=== PATIENT | female | born 1970 | race Caucasian/White ===

== ENCOUNTER 2016-10-25 16:46 | Emergency (ER) | payer OTHER ==
[2016-10-25] MEDS ORDERED: KETOROLAC 60 MG/2 ML VIAL IVP STA (17:01)
[2016-10-25] MEDS ORDERED: ONDANSETRON 4 MG/2 ML VIAL IVP STA (17:01)
[2016-10-25 17:03] VITALS: RESP 18; TEMP 98.9
--- NOTE | 2016-10-25 17:05 | ED ---
General Adult HPI - General Stated complaint: Fall Time Seen by Provider: 10/25/16 16:50 Source: RN notes reviewed - History of Present Illness Initial comments: Is a 46-year-old female presents emergency pertinent stating that she stepped up on a shelf in her pantry and then fell off of it backwards knocking herself unconscious. Patient states she estimates she was out for about 3 minutes. Patient complains of neck pain and a headache on the right side of her head. Patient states she also complains of some lower back pain. Patient states she is finding it difficult to move her right foot. Patient denies any chest pain or upper back pain. Patient denies any abdominal pain. Patient denies any arm pain and any pain on the left leg. - Related Data Home Medications Medication Instructions Recorded Confirmed Albuterol Inhaler [Ventolin Hfa 1 - 2 puff INHALATION RT-Q6H PRN 10/25/16 Inhaler] Albuterol Nebulized [Ventolin 2.5 mg INHALATION RT-Q4H PRN 10/25/16 10/25/16 Nebulized] HYDROcodone/APAP 10-325MG [[place] 1 tab PO Q6H PRN 10/25/16 10/25/16 10-325] Omeprazole 20 mg PO DAILY PRN 10/25/16 10/25/16 Ondansetron [Zofran] 4 mg PO Q12HR PRN 10/25/16 10/25/16 Allergies Allergy/AdvReac Type Severity Reaction Status Date / Time NSAIDS (Non-Steroidal Allergy Rash/Hives Verified 10/25/16 17:30 Anti-Inflamma Review of Systems ROS Statement: Those systems with pertinent positive or pertinent negative responses have been documented in the HPI. ROS Other: All systems not noted in ROS Statement are negative. General Exam - General Exam Comments Initial Comments: GENERAL: Patient is well-developed and well-nourished. Patient is nontoxic and well- hydrated and is in mild distress. ENT: Neck is soft and supple. No significant lymphadenopathy is noted. Oropharynx is clear. Moist mucous membranes. Patient has tenderness of the trapezius muscle bilaterally. There is no scalp tenderness anywhere palpated. EYES: The sclera were anicteric and conjunctiva were pink and moist. Extraocular movements were intact and pupils were equal round and reactive to light. Eyelids were unremarkable. PULMONARY: Unlabored respirations. Good breath sounds bilaterally. No audible rales rhonchi or wheezing was noted. CARDIOVASCULAR: There is a regular rate and rhythm without any murmurs gallops or rubs. ABDOMEN: Soft and nontender with normal bowel sounds. No palpable organomegaly was noted. There is no palpable pulsatile mass. SKIN: Skin is clear with no lesions or rashes and otherwise unremarkable. NEUROLOGIC: Patient is alert and oriented x3. Cranial nerves II through XII are grossly intact. Patient has full range of motion except for her right foot she states she cannot plantar or dorsi flex and can't curl her toes. But widely she know about the Normal speech, volume and content. Symmetrical smile. MUSCULOSKELETAL: Patient is no swelling or tenderness of the ankle and the on either leg. He right hip is somewhat tender in the lateral aspect but very minimally patient is able to have full range of motion of that leg. LYMPHATICS: No significant lymphadenopathy is noted PSYCHIATRIC: Normal psychiatric evaluation. Course Vital Signs 10/25/16 10/25/16 16:52 18:14 Temperature 98.9 F Pulse Rate 91 55 L Respiratory 18 18 Rate Blood Pressure 137/77 114/68 O2 Sat by Pulse 96 97 Oximetry Medical Decision Making - Medical Decision Making EKG shows a normal sinus rhythm at 83 bpm [place] interval 120 QRS is 82 QT interval 374 QTC is 439 per patient's EKG shows no ST segment elevation or depression. CT of the head and neck show no acute abnormality. X-ray of the lumbar spine to [place]. X-ray of the pelvis showed no acute normalities. I will back in there with the patient was moving the foot when I asked her to move the foot she still said she couldn't do it. Disposition Clinical Impression: Fall, Head injury, Contusion, hip Disposition: HOME SELF-CARE Condition: Good Instructions: Head Injury (ED) Referrals: None,Stated [Primary Care Provider] - 1-2 days Time of Disposition: 19:33
[2016-10-25] MEDS ORDERED: ONDANSETRON 4 MG/2 ML VIAL IM STA (17:24)
[2016-10-25] MEDS ORDERED: ACETAMINOPHEN TAB 325 MG TAB PO STA (17:26)
[2016-10-25 18:15] VITALS: BP 114/68; PULSE 55
--- NOTE | 2016-10-25 18:39 | CT ---
EXAMINATION TYPE: CT brain sheron cayr con DATE OF EXAM: 10/25/2016 6:32 PM COMPARISON: NONE HISTORY: Patient complains of headache and neck pain post fall today. CT DLP: 1154.5 mGycm Automated exposure control for dose reduction was used. TECHNIQUE: CT scan of the head and cervical spine are performed without contrast. FINDINGS: The ventricles and sulci appear normal. There is no mass effect nor midline shift. There is no sign of intracranial hemorrhage. The calvarium is intact. There is moderate mucosal thickening in the ethmoid sinus. The cervical vertebra show mild straightening. There is disc space narrowing at C6-7 with mild spurri ng of the endplates. Posterior elements are intact. Facet joints are intact. Skull base is intact. Th ere is no evidence of a fracture. IMPRESSION: Moderate spondylosis at C6-7. No fracture seen. Negative CT scan of the brain. Ethmoid sinusitis is noted.
--- NOTE | 2016-10-25 19:23 | XR ---
EXAMINATION TYPE: XR pelvis AP view DATE OF EXAM: 10/25/2016 7:18 PM COMPARISON: NONE HISTORY: Back pain after fall TECHNIQUE: Single view FINDINGS: Pelvic ring is intact. Proximal femurs and hip joints are intact. Sacroiliac joints appear normal. There is no sign of a fracture. IMPRESSION: Normal pelvis
--- NOTE | 2016-10-25 19:23 | XR ---
EXAMINATION TYPE: XR chest 2V DATE OF EXAM: 10/25/2016 7:18 PM COMPARISON: NONE HISTORY: Difficulty breathing TECHNIQUE: Frontal and lateral views of the chest are obtained. FINDINGS: Heart and mediastinum are normal. Lungs are clear. Diaphragm is normal. There is no sign o f a pneumothorax. Bony thorax and soft tissues appear normal. IMPRESSION: Normal chest
--- NOTE | 2016-10-25 19:24 | XR ---
EXAMINATION TYPE: XR lumbosacral spine min 4V DATE OF EXAM: 10/25/2016 7:18 PM COMPARISON: NONE HISTORY: Back pain after a fall TECHNIQUE: 5 views FINDINGS: The lumbar vertebra have normal spacing and alignment. Posterior elements are intact. There is no sign of a compression fracture. Sacroiliac joints appear normal. There are clips from cholecys tectomy. IMPRESSION: Normal lumbar spine
== END 2016-10-25 19:52 | disposition home or self-care (01) ==
LOC: EC 16:46
DX: S70.01XA Contusion of right hip, initial encounter (principal); S09.90XA Unspecified injury of head, initial encounter; M54.2 Cervicalgia; M54.5 Low back pain; Z88.6 Allergy status to analgesic agent; W17.89XA Other fall from one level to another, initial encounter
CPT/HCPCS: 93005; 71020; 72110; 72170; 72125; 70450; 99285; 96372; J2405

== ENCOUNTER 2016-11-09 03:22 | Emergency (ER) | payer OTHER ==
--- NOTE | 2016-11-09 03:33 | ED ---
SOB HPI - General Stated Complaint: SOB Time Seen by Provider: 11/09/16 03:25 Source: patient, EMS - History of Present Illness Initial Comments: This patient is 46-year-old woman with history of COPD who presents for shortness of breath. The patient states it is been getting worse over about the past 24 hours. She has been having the symptoms typical of exacerbations of her COPD, including increasing dyspnea, wheezing, cough which is nonproductive. Patient is denying fever or chills. He states that the shortness of breath became worse tonight and she called the ambulance. MD Complaint: shortness of breath, cough Onset/Timin -: days(s) Improves With: oxygen Known History Of: COPD Associated Symptoms: cough Treatments Prior to Arrival: oxygen, bronchodilator, NIPPV - Related Data Home Medications Medication Instructions Recorded Confirmed Albuterol Inhaler [Ventolin Hfa 1 - 2 puff INHALATION RT-Q6H PRN 10/25/16 Inhaler] Albuterol Nebulized [Ventolin 2.5 mg INHALATION RT-Q4H PRN 10/25/16 11/09/16 Nebulized] HYDROcodone/APAP 10-325MG [[place] 1 tab PO Q6H PRN 10/25/16 11/09/16 10-325] Omeprazole 20 mg PO DAILY PRN 10/25/16 11/09/16 Ondansetron [Zofran] 4 mg PO Q12HR PRN 10/25/16 11/09/16 Allergies Allergy/AdvReac Type Severity Reaction Status Date / Time NSAIDS (Non-Steroidal Allergy Rash/Hives Verified 11/09/16 03:30 Anti-Inflamma Review of Systems ROS Statement: Those systems with pertinent positive or pertinent negative responses have been documented in the HPI. ROS Other: All systems not noted in ROS Statement are negative. Constitutional: Denies: fever Respiratory: Reports: cough, dyspnea, wheezes. Denies: hemoptysis Cardiovascular: Reports: chest pain. Denies: palpitations, edema, syncope Gastrointestinal: Denies: vomiting, diarrhea Genitourinary: Denies: dysuria, hematuria Musculoskeletal: Denies: back pain Neurological: Denies: headache, weakness, numbness Past Medical History Past Medical History: Asthma, COPD Additional Past Medical History / Comment(s): ULCERATIVE COLITIS SUPERIOR MESENTARIC ARTERY SYNDROME History of Any Multi-Drug Resistant Organisms: None Reported, MRSA Date of last positivie culture/infection: 2008 MDRO Source:: SPUTUM Past Surgical History: Cholecystectomy Past Psychological History: No Psychological Hx Reported Smoking Status: Never smoker Past Alcohol Use History: None Reported Past Drug Use History: Marijuana General Exam General appearance: alert Head exam: Present: atraumatic, normocephalic Eye exam: Present: normal appearance. Absent: scleral icterus, conjunctival injection ENT exam: Present: normal oropharynx Neck exam: Present: normal inspection Respiratory exam: Present: wheezes, prolonged expiratory. Absent: rales, rhonchi, stridor, accessory muscle use, decreased breath sounds Cardiovascular Exam: Present: regular rate, normal rhythm, normal heart sounds. Absent: systolic murmur, diastolic murmur, rubs, gallop GI/Abdominal exam: Present: soft. Absent: tenderness, guarding, rebound, mass Extremities exam: Present: normal inspection, normal capillary refill. Absent: pedal edema, calf tenderness Back exam: Present: normal inspection. Absent: CVA tenderness (R), CVA tenderness (L) Neurological exam: Present: alert Skin exam: Present: warm, dry, intact, normal color. Absent: rash, cyanosis, diaphoretic, erythema, petechiae, pallor, mottled Course Vital Signs 11/09/16 11/09/16 11/09/16 03:25 04:15 04:59 Temperature 98.3 F Pulse Rate 105 H 95 66 Respiratory 32 H 18 18 Rate Blood Pressure 155/77 127/68 O2 Sat by Pulse 95 100 98 Oximetry 11/09/16 11/09/16 11/09/16 05:09 05:20 05:36 Temperature Pulse Rate 95 95 91 Respiratory 18 Rate Blood Pressure 114/61 O2 Sat by Pulse 96 Oximetry - Reevaluation(s) Reevaluation #1: 11/09/16 06:50 Patient's respiratory status has improved and able to be weaned from BiPAP. Medical Decision Making - Medical Decision Making I was informed by the admission coordinator that this patient's insurance, [employer], was not authorizing admission here and will request that patient be admitted at [facility]. This was discussed with the patient. - Lab Data Result diagrams: 11/09/16 03:38 11/09/16 03:38 Lab Results 0311/09/16 11/09/16 Range/Units 03:38 03:38 03:38 WBC 9.5 (3.8-10.6) k/uL RBC 4.41 (3.80-5.40) m/uL Hgb 13.4 (11.4-16.0) gm/dL Hct 40.4 (34.0-46.0) % MCV 91.7 (80.0-100.0) fL MCH 30.3 (25.0-35.0) pg MCHC 33.1 (31.0-37.0) g/dL RDW 13.4 (11.5-15.5) % Plt Count 322 (150-450) k/uL Neutrophils % 68 % Lymphocytes % 20 % Monocytes % 4 % Eosinophils % 5 % Basophils % 1 % Neutrophils # 6.5 (1.3-7.7) k/uL Lymphocytes # 1.9 (1.0-4.8) k/uL Monocytes # 0.4 (0-1.0) k/uL Eosinophils # 0.4 (0-0.7) k/uL Basophils # 0.1 (0-0.2) k/uL PT 9.8 (9.0-12.0) sec INR 1.0 (<1.1) APTT 20.9 L (22.0-30.0) sec D-Dimer 0.62 H (<0.60) mg/L FEU Sodium 142 (137-145) mmol/L Potassium 4.9 (3.5-5.1) mmol/L Chloride 106 (98-107) mmol/L Carbon Dioxide 27 (22-30) mmol/L Anion Gap 9 mmol/L BUN 15 (7-17) mg/dL Creatinine 0.80 (0.52-1.04) mg/dL Est GFR (MDRD) Af Amer >60 (>60 ml/min/1.73 sqM) Est GFR (MDRD) Non-Af >60 (>60 ml/min/1.73 sqM) Glucose 130 H (74-99) mg/dL Calcium 8.9 (8.4-10.2) mg/dL Magnesium 1.9 (1.6-2.3) mg/dL Total Bilirubin 0.3 (0.2-1.3) mg/dL AST 42 H (14-36) U/L ALT 66 H (9-52) U/L Alkaline Phosphatase 88 (38-126) U/L Troponin I (0.000-0.034) ng/mL NT-Pro-B Natriuret Pep pg/mL Total Protein 6.7 (6.3-8.2) g/dL Albumin 4.2 (3.5-5.0) g/dL 11/09/16 11/09/16 Range/Units 03:38 03:38 WBC (3.8-10.6) k/uL RBC (3.80-5.40) m/uL Hgb (11.4-16.0) gm/dL Hct (34.0-46.0) % MCV (80.0-100.0) fL MCH (25.0-35.0) pg MCHC (31.0-37.0) g/dL RDW (11.5-15.5) % Plt Count (150-450) k/uL Neutrophils % % Lymphocytes % % Monocytes % % Eosinophils % % Basophils % % Neutrophils # (1.3-7.7) k/uL Lymphocytes # (1.0-4.8) k/uL Monocytes # (0-1.0) k/uL Eosinophils # (0-0.7) k/uL Basophils # (0-0.2) k/uL PT (9.0-12.0) sec INR (<1.1) APTT (22.0-30.0) sec D-Dimer (<0.60) mg/L FEU Sodium (137-145) mmol/L Potassium (3.5-5.1) mmol/L Chloride (98-107) mmol/L Carbon Dioxide (22-30) mmol/L Anion Gap mmol/L BUN (7-17) mg/dL Creatinine (0.52-1.04) mg/dL Est GFR (MDRD) Af Amer (>60 ml/min/1.73 sqM) Est GFR (MDRD) Non-Af (>60 ml/min/1.73 sqM) Glucose (74-99) mg/dL Calcium (8.4-10.2) mg/dL Magnesium (1.6-2.3) mg/dL Total Bilirubin (0.2-1.3) mg/dL AST (14-36) U/L ALT (9-52) U/L Alkaline Phosphatase (38-126) U/L Troponin I <0.012 (0.000-0.034) ng/mL NT-Pro-B Natriuret Pep 386 pg/mL Total Protein (6.3-8.2) g/dL Albumin (3.5-5.0) g/dL - EKG Data -: EKG Interpreted by Me EKG shows normal: sinus rhythm, axis (Normal), intervals (Normal), ST-T waves ( Normal) Rate: tachycardia (Rate 103 bpm) Disposition Clinical Impression: Acute exacerbation of chronic obstructive airways disease Disposition: ADMITTED IP TO THIS HOSP Condition: Fair Referrals: None,Stated [Primary Care Provider] - 1-2 days
[2016-11-09 03:49] LABS: Basophils # (A) 0.1 k/uL (0-0.2); Basophils % (A) 1 %; CH 29.7; CHCM 32.6; Eosinophils # (A) 0.4 k/uL (0-0.7); Eosinophils % (A) 5 %; HCT 40.4 % (34.0-46.0); HGB 13.4 gm/dL (11.4-16.0); Luc # (Auto) 0.24; Luc % (Auto) 3; Lymphocytes # (A) 1.9 k/uL (1.0-4.8); Lymphocytes % (A) 20 %; MCH 30.3 pg (25.0-35.0); MCHC 33.1 g/dL (31.0-37.0); MCV 91.7 fL (80.0-100.0); Mean Platelet Volume 7.8; Monocytes # (A) 0.4 k/uL (0-1.0); Monocytes % (A) 4 %; Neutrophils # (A) 6.5 k/uL (1.3-7.7); Neutrophils % (A) 68 %; RBC 4.41 m/uL (3.80-5.40); RDW 13.4 % (11.5-15.5); WBC 9.5 k/uL (3.8-10.6); WBC (Perox) 9.88
[2016-11-09 04:01] LABS: ALT 66 U/L (9-52); AST 42 U/L (14-36); Alkaline Phosphatase 88 U/L (38-126); Anion Gap 9 mmol/L; Blood Urea Nitrogen 15 mg/dL (7-17); Calcium 8.9 mg/dL (8.4-10.2); Carbon Dioxide 27 mmol/L (22-30); Chloride 106 mmol/L (98-107); Glucose 130 mg/dL (74-99); Magnesium 1.9 mg/dL (1.6-2.3); Non-African American GFR(MDRD) >60 (>60 ml/min/1.73 sqM); Potassium 4.9 mmol/L (3.5-5.1); Sodium 142 mmol/L (137-145); Total Bilirubin 0.3 mg/dL (0.2-1.3); Total Protein 6.7 g/dL (6.3-8.2)
[2016-11-09 04:10] LABS: Partial Thromboplastin Time 20.9 sec (22.0-30.0); Prothrombin Time 9.8 sec (9.0-12.0)
[2016-11-09 04:15] VITALS: RESP 18
--- NOTE | 2016-11-09 04:15 | XR ---
EXAM: XR Chest, 1 View. CLINICAL HISTORY: Reason: dyspnea TECHNIQUE: Frontal view of the chest. COMPARISON: 10/25/16 FINDINGS: Lungs: Unremarkable. No consolidation. Pleural space: Unremarkable. No pneumothorax. Heart: Unremarkable. No cardiomegaly. Mediastinum: Unremarkable. Bones/joints: Unremarkable. Tubes, lines and devices: Overlying chest leads obscure portion of the chest. Other findings: No significant change. IMPRESSION: No acute findings.
[2016-11-09] MEDS ORDERED: predniSONE 20 MG TAB PO STA (04:55)
[2016-11-09] MEDS ORDERED: ALBUTEROL NEBULIZED 2.5 MG/3 ML INHALATION STA (04:58)
[2016-11-09] MEDS ORDERED: HYDROcodone/APAP 7.5-325MG 1 EACH TAB PO ONE (04:58)
[2016-11-09] MEDS ORDERED: SODIUM CHLORIDE 0.9% 1,000 ML IV SCH (05:15)
[2016-11-09] MEDS ORDERED: PANTOPRAZOLE 40 MG TABLET PO PRN (05:16)
[2016-11-09] MEDS ORDERED: ONDANSETRON 4 MG TAB PO PRN (05:16)
[2016-11-09] MEDS ORDERED: HYDROcodone/APAP 7.5-325MG 1 EACH TAB PO SCH (05:30)
[2016-11-09] MEDS ORDERED: IPRATROPIUM-ALBUTEROL 3 ML NEB INHALATION SCH (08:00)
[2016-11-09 08:23] VITALS: BP 117/72; PULSE 94; TEMP 98.5
[2016-11-09] MEDS ORDERED: NICOTINE 21MG/24HR PATCH TD SCH (09:00)
[2016-11-09] MEDS ORDERED: predniSONE 20 MG TAB PO SCH (09:00)
== END 2016-11-09 08:21 | disposition other institution (70) ==
LOC: EC 03:22
DX: J44.1 Chronic obstructive pulmonary disease with (acute) exacerbation (principal); Z88.8 Allergy status to other drugs, medicaments and biological substances; Z86.14 Personal history of Methicillin resistant Staphylococcus aureus infection
CPT/HCPCS: 99285 ×2; 36415; 94660; 94640; 93005; 85379; 83880; 80053; 83735; 84484; 85025; 85610; 85730; 71010; J7512

== ENCOUNTER 2016-11-30 01:41 | Emergency (ER) | payer OTHER ==
[2016-11-30] MEDS ORDERED: SODIUM CHLORIDE 0.9% 1,000 ML IV STA ×2 (02:11→05:02)
[2016-11-30] MEDS ORDERED: ONDANSETRON 4 MG/2 ML VIAL IVP STA (02:29)
[2016-11-30 02:36] LABS: Basophils % (A) 0 %; CHCM 29.3; Eosinophils # (A) 0.1 k/uL (0-0.7); Eosinophils % (A) 1 %; HCT 47.8 % (34.0-46.0); HDW 2.25; HGB 13.2 gm/dL (11.4-16.0); Hypochromasia Marked; Luc # (Auto) 0.18; Luc % (Auto) 1; Lymphocytes # (A) 1.5 k/uL (1.0-4.8); Lymphocytes % (A) 9 %; MCH 27.5 pg (25.0-35.0); Monocytes # (A) 0.6 k/uL (0-1.0); Monocytes % (A) 4 %; Neutrophils # (A) 14.4 k/uL (1.3-7.7); Neutrophils % (A) 85 %; RBC 4.81 m/uL (3.80-5.40); WBC 16.9 k/uL (3.8-10.6); WBC (Perox) 18.15
[2016-11-30 02:38] LABS: MCHC 27.7 g/dL (31.0-37.0); MCV 99.4 fL (80.0-100.0)
[2016-11-30 02:45] LABS: ALT 28 U/L (9-52); AST 26 U/L (14-36); Alcohol <10 mg/dL; Alkaline Phosphatase 96 U/L (38-126); Anion Gap 28 mmol/L; Blood Urea Nitrogen 14 mg/dL (7-17); Calcium 9.5 mg/dL (8.4-10.2); Chloride 109 mmol/L (98-107); Glucose 138 mg/dL (74-99); Non-African American GFR(MDRD) 47 (>60 ml/min/1.73 sqM); Potassium 4.1 mmol/L (3.5-5.1); Sodium 145 mmol/L (137-145); Total Bilirubin 0.5 mg/dL (0.2-1.3); Total Protein 7.1 g/dL (6.3-8.2)
[2016-11-30 02:47] LABS: Carbon Dioxide 8 mmol/L (22-30)
--- NOTE | 2016-11-30 03:02 | ED ---
Seizure HPI - General Source: patient, EMS Mode of arrival: EMS Limitations: altered mental status <Soni Bales - Last Filed: 11/30/16 04:35> <Saran Covington - Last Filed: 11/30/16 06:44> - General Chief Complaint: Seizure Stated Complaint: Seizure Time Seen by Provider: 11/30/16 01:58 - History of Present Illness Initial Comments: Patient is a 46-year-old female with a history of seizures presenting to the emergency department after 2 grand mal seizures. One was at her home and EMS was called. The second was in the EMS rig. She was given Versed the seizure subsided in the EMS rig. Patient states that she has not had a seizure in a long time. She does not see a neurologist. She does take gabapentin for chronic neuropathy. Upon questioning patient states that she cannot remember anything from earlier today. She states that yesterday she did hit her head once on a metal freezer. She does have a slight hematoma over the anterior forehead. Patient states that she is unable to recall anything that occurred. She is alert and oriented 3 for me at this time. Patient reports that she feels nauseated and is vomiting. (Soni Bales) - Related Data Home Medications Medication Instructions Recorded Confirmed Albuterol Inhaler [Ventolin Hfa 2 puff INHALATION RT-Q6H PRN 10/25/16 11/30/16 Inhaler] Albuterol Nebulized [Ventolin 2.5 mg INHALATION RT-Q4H PRN 10/25/16 11/30/16 Nebulized] HYDROcodone/APAP 10-325MG [[place] 1 tab PO Q6H PRN 10/25/16 11/30/16 10-325] Aclidinium [place] [[place] 1 puff PO RT-DAILY 11/09/16 11/30/16 [place]] Gabapentin [Neurontin] 800 mg PO Q8H 11/09/16 11/30/16 Allergies Allergy/AdvReac Type Severity Reaction Status Date / Time NSAIDS (Non-Steroidal Allergy Rash/Hives Verified 11/30/16 02:22 Anti-Inflamma Review of Systems ROS Other: All systems not noted in ROS Statement are negative. <Soni Bales - Last Filed: 11/30/16 04:35> ROS Other: All systems not noted in ROS Statement are negative. <Saran Covington - Last Filed: 11/30/16 06:44> ROS Statement: Those systems with pertinent positive or pertinent negative responses have been documented in the HPI. Past Medical History Past Medical History: Asthma, COPD, Seizure Disorder Additional Past Medical History / Comment(s): ULCERATIVE COLITIS SUPERIOR MESENTARIC ARTERY SYNDROME History of Any Multi-Drug Resistant Organisms: None Reported, MRSA Date of last positivie culture/infection: 2015 MDRO Source:: SPUTUM Past Surgical History: Cholecystectomy Past Psychological History: No Psychological Hx Reported Smoking Status: Former smoker Past Alcohol Use History: None Reported Past Drug Use History: Cocaine, Marijuana <Soni Bales - Last Filed: 11/30/16 04:35> General Exam Limitations: altered mental status General appearance: alert, in no apparent distress Head exam: Present: atraumatic, normocephalic, normal inspection Eye exam: Present: normal appearance, PERRL, EOMI. Absent: scleral icterus, conjunctival injection, periorbital swelling ENT exam: Present: normal exam, mucous membranes moist Neck exam: Present: normal inspection. Absent: tenderness, meningismus, lymphadenopathy Respiratory exam: Present: normal lung sounds bilaterally. Absent: respiratory distress, wheezes, rales, rhonchi, stridor Cardiovascular Exam: Present: regular rate, normal rhythm, normal heart sounds. Absent: systolic murmur, diastolic murmur, rubs, gallop, clicks GI/Abdominal exam: Present: soft, normal bowel sounds. Absent: distended, tenderness, guarding, rebound, rigid Extremities exam: Present: normal inspection, full ROM, normal capillary refill. Absent: tenderness, pedal edema, joint swelling, calf tenderness Back exam: Present: normal inspection Neurological exam: Present: alert, oriented X3, CN II-XII intact Psychiatric exam: Present: normal affect, normal mood Skin exam: Present: warm, dry, intact, normal color. Absent: rash <Soni Bales - Last Filed: 11/30/16 04:35> General appearance: alert, in no apparent distress Head exam: Present: atraumatic, normocephalic, normal inspection Eye exam: Present: normal appearance, PERRL, EOMI. Absent: scleral icterus, conjunctival injection, periorbital swelling ENT exam: Present: normal exam, mucous membranes moist Neck exam: Present: normal inspection. Absent: tenderness, meningismus, lymphadenopathy Respiratory exam: Present: normal lung sounds bilaterally. Absent: respiratory distress, wheezes, rales, rhonchi, stridor Cardiovascular Exam: Present: regular rate, normal rhythm, normal heart sounds. Absent: systolic murmur, diastolic murmur, rubs, gallop, clicks GI/Abdominal exam: Present: soft, normal bowel sounds. Absent: distended, tenderness, guarding, rebound, rigid Extremities exam: Present: normal inspection, full ROM, normal capillary refill. Absent: tenderness, pedal edema, joint swelling, calf tenderness Back exam: Present: normal inspection Neurological exam: Present: alert, oriented X3, CN II-XII intact Psychiatric exam: Present: normal affect, normal mood Skin exam: Present: warm, dry, intact, normal color. Absent: rash <Saarn Covington - Last Filed: 11/30/16 06:44> Course <Soni Bales - Last Filed: 11/30/16 04:35> <Saran Covington - Last Filed: 11/30/16 06:44> Vital Signs 11/30/16 11/30/16 11/30/16 02:00 03:13 04:14 Temperature 98.2 F Pulse Rate 92 71 80 Respiratory 16 18 16 Rate Blood Pressure 90/43 105/56 107/58 O2 Sat by Pulse 95 99 99 Oximetry 11/30/16 11/30/16 11/30/16 05:04 06:01 06:29 Temperature 99.3 F Pulse Rate 76 82 82 Respiratory 16 16 16 Rate Blood Pressure 124/56 122/57 125/56 O2 Sat by Pulse 97 98 97 Oximetry - Reevaluation(s) Reevaluation #1: 11/30/16 06:44 Patient without seizure emergency room, acting appropriately (Saran Covington) Medical Decision Making - Lab Data Result diagrams: 11/30/16 02:05 11/30/16 02:05 - Radiology Data Radiology results: report reviewed <Soni Bales - Last Filed: 11/30/16 04:35> - Lab Data Result diagrams: 11/30/16 02:05 11/30/16 02:05 <Saran Covington - Last Filed: 11/30/16 06:44> - Medical Decision Making Patient is a 46-year-old female with chief complaint of 2 grand mal seizures prior to arriving to the emergency department. Patient does not remember anything that she has done earlier today. Patient states that she had hit her head yesterday on a freezer door. She states that she feels nauseated and was vomiting upon arriving to the emergency department. She did receive Versed the EMS. At this time patient does have an elevated white blood cell count 14 and a CO2 of 8. This is likely related to her seizure. Patient is given IV fluids. CT brain is negative for any acute abnormality. Chest x-ray is also negative for any acute abnormality. Currently pending the urine drug screen and urinalysis results. Care will be transferred over to Dr. Sim At 4:30 in the morning. (Soni Bales) 46 female ER for evaluation. Patient had 2 significant grand mal seizures today. With loss of consciousness. Patient does do both recreational and prescription drugs, likely drug-related at this time. Patient's no acute distress and can be discharged home (Saran Covington) - Lab Data Lab Results 11/30/16 11/30/16 11/30/16 Range/Units 02:05 02:05 05:54 WBC 16.9 H (3.8-10.6) k/uL RBC 4.81 (3.80-5.40) m/uL Hgb 13.2 (11.4-16.0) gm/dL Hct 47.8 H (34.0-46.0) % MCV 99.4 D (80.0-100.0) fL MCH 27.5 (25.0-35.0) pg MCHC 27.7 L (31.0-37.0) g/dL RDW 14.0 (11.5-15.5) % Plt Count 236 (150-450) k/uL Neutrophils % 85 % Lymphocytes % 9 % Monocytes % 4 % Eosinophils % 1 % Basophils % 0 % Neutrophils # 14.4 H (1.3-7.7) k/uL Lymphocytes # 1.5 (1.0-4.8) k/uL Monocytes # 0.6 (0-1.0) k/uL Eosinophils # 0.1 (0-0.7) k/uL Basophils # 0.0 (0-0.2) k/uL Hypochromasia Marked Sodium 145 (137-145) mmol/L Potassium 4.1 (3.5-5.1) mmol/L Chloride 109 H (98-107) mmol/L Carbon Dioxide 8 L* (22-30) mmol/L Anion Gap 28 mmol/L BUN 14 (7-17) mg/dL Creatinine 1.24 H (0.52-1.04) mg/dL Est GFR (MDRD) Af Amer 57 (>60 ml/min/1.73 sqM) Est GFR (MDRD) Non-Af 47 (>60 ml/min/1.73 sqM) Glucose 138 H (74-99) mg/dL Calcium 9.5 (8.4-10.2) mg/dL Total Bilirubin 0.5 (0.2-1.3) mg/dL AST 26 (14-36) U/L ALT 28 (9-52) U/L Alkaline Phosphatase 96 (38-126) U/L Total Protein 7.1 (6.3-8.2) g/dL Albumin 4.3 (3.5-5.0) g/dL Urine Color Urine Appearance (Clear) Urine pH (5.0-8.0) Ur Specific [place] (1.001-1.035) Urine Protein (Negative) Urine Glucose (UA) (Negative) Urine Blood (Negative) Urine Nitrite (Negative) Urine Bilirubin (Negative) Urine Urobilinogen (<2.0) mg/dL Ur Leukocyte Esterase (Negative) Urine Opiates Screen Detected H (NotDetected) Ur Oxycodone Screen Detected H (NotDetected) Urine Methadone Screen Not Detected (NotDetected) Ur Propoxyphene Screen Not Detected (NotDetected) Ur Barbiturates Screen Not Detected (NotDetected) U Tricyclic Antidepress Detected H (NotDetected) Ur Phencyclidine Scrn Not Detected (NotDetected) Ur Amphetamines Screen Not Detected (NotDetected) U Methamphetamines Scrn Not Detected (NotDetected) U Benzodiazepines Scrn Detected H (NotDetected) Urine Cocaine Screen Not Detected (NotDetected) U Marijuana (THC) Screen Detected H (NotDetected) Serum Alcohol <10 mg/dL 11/30/16 Range/Units 05:54 WBC (3.8-10.6) k/uL RBC (3.80-5.40) m/uL Hgb (11.4-16.0) gm/dL Hct (34.0-46.0) % MCV (80.0-100.0) fL MCH (25.0-35.0) pg MCHC (31.0-37.0) g/dL RDW (11.5-15.5) % Plt Count (150-450) k/uL Neutrophils % % Lymphocytes % % Monocytes % % Eosinophils % % Basophils % % Neutrophils # (1.3-7.7) k/uL Lymphocytes # (1.0-4.8) k/uL Monocytes # (0-1.0) k/uL Eosinophils # (0-0.7) k/uL Basophils # (0-0.2) k/uL Hypochromasia Sodium (137-145) mmol/L Potassium (3.5-5.1) mmol/L Chloride (98-107) mmol/L Carbon Dioxide (22-30) mmol/L Anion Gap mmol/L BUN (7-17) mg/dL Creatinine (0.52-1.04) mg/dL Est GFR (MDRD) Af Amer (>60 ml/min/1.73 sqM) Est GFR (MDRD) Non-Af (>60 ml/min/1.73 sqM) Glucose (74-99) mg/dL Calcium (8.4-10.2) mg/dL Total Bilirubin (0.2-1.3) mg/dL AST (14-36) U/L ALT (9-52) U/L Alkaline Phosphatase (38-126) U/L Total Protein (6.3-8.2) g/dL Albumin (3.5-5.0) g/dL Urine Color Yellow Urine Appearance Clear (Clear) Urine pH 5.5 (5.0-8.0) Ur Specific [place] 1.021 (1.001-1.035) Urine Protein Trace H (Negative) Urine Glucose (UA) Negative (Negative) Urine Blood Negative (Negative) Urine Nitrite Negative (Negative) Urine Bilirubin Negative (Negative) Urine Urobilinogen <2.0 (<2.0) mg/dL Ur Leukocyte Esterase Negative (Negative) Urine Opiates Screen (NotDetected) Ur Oxycodone Screen (NotDetected) Urine Methadone Screen (NotDetected) Ur Propoxyphene Screen (NotDetected) Ur Barbiturates Screen (NotDetected) U Tricyclic Antidepress (NotDetected) Ur Phencyclidine Scrn (NotDetected) Ur Amphetamines Screen (NotDetected) U Methamphetamines Scrn (NotDetected) U Benzodiazepines Scrn (NotDetected) Urine Cocaine Screen (NotDetected) U Marijuana (THC) Screen (NotDetected) Serum Alcohol mg/dL 11/30/16 03:04 EKG shows sinus rhythm with short HI interval. Ventricular rate of 70 bpm. HI interval 106. QRS duration 80 ms. QT/QTC 386/440 ms. (Soni Baels) - Radiology Data CT shows no evidence of acute intracranial abnormality. Chest x-ray shows no evidence of acute cardiopulmonary disease. (Soni Bales) Disposition Time of Disposition: 03:37 <Soni Bales - Last Filed: 11/30/16 04:35> <Saran Covington - Last Filed: 11/30/16 06:44> Clinical Impression: Seizure after head injury, Generalized seizure Disposition: HOME SELF-CARE Condition: Good Instructions: Recurrent Seizures in Adults (ED), New-Onset Seizure in Adults ( ED) Referrals: None,Stated [Primary Care Provider] - 1-2 days
--- NOTE | 2016-11-30 03:44 | CT ---
EXAM: CT Head Without Intravenous Contrast. CLINICAL HISTORY: Reason: seizure activity TECHNIQUE: Axial computed tomography images of the head/brain without intravenous contrast. CTDI is 60.30 mGy and DLP is 1054.20 mGy-cm This CT exam was performed using one or more of the following dose reduction techniques: automated exposure control, adjustment of the mA and/or kV according to patient size, and/or use of iterative reconstruction technique. COMPARISON: 10/25/16 FINDINGS: Brain: Unremarkable. No hemorrhage. No significant white matter disease. No edema. Ventricles: Unremarkable. No ventriculomegaly. Bones/joints: Unremarkable. No acute fracture. Soft tissues: Unremarkable. Sinuses: Mild paranasal sinus mucosal thickening. Mastoid air cells: Unremarkable as visualized. No mastoid effusion. IMPRESSION: No evidence of acute intracranial abnormality
--- NOTE | 2016-11-30 03:56 | XR ---
EXAM: XR Chest, 2 Views. CLINICAL HISTORY: Reason: Pain seizure activity, cough, congestion. TECHNIQUE: Frontal and lateral views of the chest. COMPARISON: 11/09/2016. FINDINGS: Lungs: Unremarkable. No consolidation. Pleural space: Unremarkable. No pneumothorax. Heart: Unremarkable. No cardiomegaly. Mediastinum: Unremarkable. Bones/joints: Unremarkable. IMPRESSION: No evidence of acute cardiopulmonary disease.
[2016-11-30 04:16] VITALS: RESP 16
[2016-11-30 06:17] LABS: Appearance,Urine Clear (Clear); Bilirubin,Urine Negative (Negative); Glucose,Urine (UA) Negative (Negative); Ketones,Urine 2+ (Negative); Leukocyte Esterase,Urine Negative (Negative); Nitrite,Urine Negative (Negative); PH, Urine 5.5 (5.0-8.0); Protein,Urine Trace (Negative); Specific Gravity,Urine 1.021 (1.001-1.035); UA Billing (MACRO vs. MICRO) CHEM; Urobilinogen,Urine <2.0 mg/dL (<2.0)
[2016-11-30] MEDS ORDERED: ACETAMINOPHEN TAB 325 MG TAB PO STA (06:23)
[2016-11-30 07:45] VITALS: BP 112/70; PULSE 80; TEMP 99.4
== END 2016-11-30 07:45 | disposition home or self-care (01) ==
LOC: EC 01:41
DX: G40.409 Other generalized epilepsy and epileptic syndromes, not intractable, without status epilepticus (principal); S09.90XA Unspecified injury of head, initial encounter; W22.8XXA Striking against or struck by other objects, initial encounter; J44.9 Chronic obstructive pulmonary disease, unspecified; J45.909 Unspecified asthma, uncomplicated; G62.9 Polyneuropathy, unspecified; Z79.899 Other long term (current) drug therapy; Z88.6 Allergy status to analgesic agent; Z87.891 Personal history of nicotine dependence
CPT/HCPCS: 36415; 93005; 80053; 85025; 81003; 80306; 80320; 71020; 70450; 99285; 96374; 96361 ×2; J2405